=== PATIENT | male | born 1975 | race Caucasian/White ===

== ENCOUNTER 2017-02-08 09:43 | Outpatient (CLI) | payer OTHER ==
[2017-02-08 10:00] LABS: BASOPHILS % 0.7 (0.0-1.5); EOSINOPHILS % 0.8 % (0.0-6.8); MEAN CORPUSCULAR HEMOGLOBIN 30.6 pg (28.0-34.0); MEAN CORPUSCULAR VOLUME 86.5 fl (80.0-100.0); MONOCYTES % 4.1 % (0.0-11.0); NEUTROPHILS # 7.4 # k/uL (1.4-7.7)
[2017-02-08 10:10] LABS: eGFR (African) > 60; eGFR (Non-African) > 60
== END 2017-02-08 09:44 ==
LOC: LAB 09:43
PROVIDERS: ATTEND General Practice
DX: R10.0 Acute abdomen (principal)
CPT/HCPCS: 80053; 85025